=== PATIENT | female | born 1935 | race Caucasian/White ===

== ENCOUNTER → 2017-12-10 | Outpatient (CLI) | payer MEDICARE, OTHER | END | disposition home or self-care (01) | LOC: VAS 14:51 | DX: M79.605 Pain in left leg (principal); R60.9 Edema, unspecified | CPT/HCPCS: 93922; 93970 ==

== ENCOUNTER 2018-04-06 14:06 | Inpatient (IN) | payer MEDICARE, OTHER ==
[2018-04-06] MEDS ORDERED: ONDANSETRON 4 MG INJ IV (14:30)
[2018-04-06] MEDS ORDERED: NACL 0.9% 3 ML SYG IV ×2 (14:30→15:30)
[2018-04-06] MEDS ORDERED: ZOLPIDEM 5 MG TAB PO (14:30)
[2018-04-06] MEDS ORDERED: VANCOMYCIN IV PER PHARMACY XX (14:30)
[2018-04-06 15:08] LABS: ADD MAN DIFF? NO
[2018-04-06 15:11] LABS: BASOPHIL # 0.1 10^3/ul (0.0-0.1); BASOPHILS % 0.3 % (0.0-2.0); EOSINOPHILS # 0.1 10^3/ul (0.0-0.5); EOSINOPHILS % 0.3 % (0.0-7.0); HEMATOCRIT 39.1 % (37.0-47.0); LYMPHOCYTES # 1.4 10^3/ul (0.8-2.9); LYMPHOCYTES % 9.6 % (15.0-51.0); MEAN CORPUSCULAR HEMOGLOBIN 31.4 pg (29.0-33.0); MEAN CORPUSCULAR HGB CONC 33.2 g/dl (32.0-37.0); MEAN CORPUSCULAR VOLUME 94.4 fl (82.0-101.0); MEAN PLATELET VOLUME 10.3 fl (7.4-10.4); MONOCYTE # 0.8 10^3/ul (0.3-0.9); MONOCYTES % 5.5 % (0.0-11.0); NEUTROPHIL # 12.3 10^3/ul (1.6-7.5); NEUTROPHILS % 83.4 % (39.0-77.0); PLATELET COUNT 265 10^3/UL (140-415); RED BLOOD COUNT 4.14 10^6/ul (4.20-5.40); RED CELL DISTRIBUTION WIDTH 12.8 % (11.5-14.5)
[2018-04-06 15:11] LABS: WHITE BLOOD COUNT 14.8 10^3/ul (4.8-10.8)
[2018-04-06 15:29] LABS: ALANINE AMINOTRANSFERASE 24 IU/L (13-69); ALBUMIN 3.9 g/dl (3.3-4.9); ALBUMIN/GLOBULIN RATIO 1.25; ALKALINE PHOSPHATASE 57 IU/L (42-121); ANION GAP 9 (5-13); ASPARTATE AMINO TRANSFERASE 20 IU/L (15-46); BILIRUBIN,INDIRECT 1.7 mg/dl (0-1.1); BILIRUBIN,TOTAL 1.7 mg/dl (0.2-1.3); BLOOD UREA NITROGEN 18 mg/dl (7-20); CALCIUM 9.2 mg/dl (8.4-10.2); CARBON DIOXIDE 26 mmol/L (21-31); CHLORIDE 107 mmol/L (97-110); CREATININE 1.07 mg/dl (0.44-1.00); GLUCOSE 150 mg/dl (70-220); MAGNESIUM 1.9 mg/dl (1.7-2.5); PHOSPHORUS 3.8 mg/dl (2.5-4.9); POTASSIUM 4.2 mmol/L (3.5-5.1); SODIUM 142 mmol/L (135-144)
[2018-04-06] MEDS: PIPER-TAZO 3.375 GM IV (PMX) 100 ML IVPB ×2 (16:20→21:29)
[2018-04-06] MEDS: VANCOMYCIN 1.5 GM in SOD CHLORIDE 0.9% 250 ML IVPB (18:15)
[2018-04-06] MEDS: ALBUTEROL HFA 8 GM INHALER INH (18:32)
[2018-04-06] MEDS ORDERED: PIPER-TAZO 3.375 GM IV (PMX) 100 ML IVPB (22:00)
[2018-04-07 01:21] LABS: ADD UMIC NO; UR ASCORBIC ACID NEGATIVE (NEGATIVE); UR BILIRUBIN (Dip) NEGATIVE (NEGATIVE); UR BLOOD (Dip) NEGATIVE (NEGATIVE); UR CLARITY CLEAR (CLEAR); UR COLOR STRAW (YELLOW); UR GLUCOSE (Dip) NEGATIVE (NEGATIVE); UR KETONES (Dip) NEGATIVE (NEGATIVE); UR LEUKOCYTE ESTERASE (Dip) NEGATIVE Leu/ul (NEGATIVE); UR NITRITE (Dip) NEGATIVE (NEGATIVE); UR SPECIFIC GRAVITY (Dip) 1.014 (1.003-1.030); UR TOTAL PROTEIN (Dip) NEGATIVE (NEGATIVE); UR UROBILINOGEN (Dip) NEGATIVE (NEGATIVE)
[2018-04-07] MEDS: ALBUTEROL HFA 8 GM INHALER INH ×4 (01:41→21:58)
[2018-04-07] MEDS: PIPER-TAZO 3.375 GM IV (PMX) 100 ML IVPB ×3 (05:19→21:28)
[2018-04-07 07:19] LABS: HEMOGLOBIN A1C 5.7 % (0-5.9)
[2018-04-07] MEDS: ASPIRIN (EC) 81 MG TAB PO (08:35)
[2018-04-07] MEDS: COLLAGENASE 5 GM (UD JAR) TOP (15:30)
[2018-04-07] MEDS ORDERED: PENDING SANTYL ORDER FOR WOUND CARE XX (15:30)
[2018-04-07] MEDS ORDERED: COLLAGENASE 5 GM (UD JAR) TOP (16:00)
[2018-04-07] MEDS: VANCOMYCIN 1 GM 250 ML IVPB (16:54)
[2018-04-08] MEDS: ALBUTEROL HFA 8 GM INHALER INH (02:33)
[2018-04-08] MEDS: PIPER-TAZO 3.375 GM IV (PMX) 100 ML IVPB ×3 (05:34→22:22)
[2018-04-08 07:16] LABS: ADD MAN DIFF? NO
[2018-04-08 07:28] LABS: BASOPHIL # 0.1 10^3/ul (0.0-0.1); BASOPHILS % 0.6 % (0.0-2.0); EOSINOPHILS # 0.1 10^3/ul (0.0-0.5); HEMATOCRIT 36.8 % (37.0-47.0); HEMOGLOBIN 12.1 g/dl (12.0-16.0); LYMPHOCYTES # 1.6 10^3/ul (0.8-2.9); LYMPHOCYTES % 16.9 % (15.0-51.0); MEAN CORPUSCULAR HEMOGLOBIN 31.3 pg (29.0-33.0); MEAN CORPUSCULAR HGB CONC 32.9 g/dl (32.0-37.0); MEAN CORPUSCULAR VOLUME 95.1 fl (82.0-101.0); MEAN PLATELET VOLUME 10.4 fl (7.4-10.4); MONOCYTE # 0.6 10^3/ul (0.3-0.9); MONOCYTES % 6.5 % (0.0-11.0); NEUTROPHIL # 7.2 10^3/ul (1.6-7.5); PLATELET COUNT 235 10^3/UL (140-415); RED BLOOD COUNT 3.87 10^6/ul (4.20-5.40); RED CELL DISTRIBUTION WIDTH 13.2 % (11.5-14.5)
[2018-04-08 07:28] LABS: WHITE BLOOD COUNT 9.7 10^3/ul (4.8-10.8)
[2018-04-08 07:49] LABS: ANION GAP 9 (5-13); BLOOD UREA NITROGEN 20 mg/dl (7-20); CARBON DIOXIDE 27 mmol/L (21-31); CHLORIDE 107 mmol/L (97-110); CREATININE 1.21 mg/dl (0.44-1.00); GLUCOSE 105 mg/dl (70-220); POTASSIUM 4.5 mmol/L (3.5-5.1); SODIUM 143 mmol/L (135-144)
[2018-04-08 09:02] LABS: ERYTHROCYTE SEDIMENTATION RATE 33 mm/Hr (0-30)
[2018-04-08] MEDS: ASPIRIN (EC) 81 MG TAB PO (09:21)
[2018-04-08] MEDS: ACETAMINOPHEN 325 MG TAB PO (09:27)
[2018-04-08] MEDS: COLLAGENASE 5 GM (UD JAR) TOP (09:27)
[2018-04-08] MEDS: ALBUTEROL/IPRATROPIUM (NEB) 3 ML AMP HHN (21:46)
[2018-04-09] MEDS: PIPER-TAZO 3.375 GM IV (PMX) 100 ML IVPB ×2 (05:45→13:27)
[2018-04-09] MEDS: ALBUTEROL HFA 8 GM INHALER INH ×2 (05:47→22:11)
[2018-04-09] MEDS: ALBUTEROL/IPRATROPIUM (NEB) 3 ML AMP HHN ×3 (07:50→20:00)
[2018-04-09] MEDS: ASPIRIN (EC) 81 MG TAB PO (08:25)
[2018-04-09] MEDS: COLLAGENASE 5 GM (UD JAR) TOP (08:25)
[2018-04-09] MEDS: ACETAMINOPHEN 325 MG TAB PO (13:27)
[2018-04-10] MEDS: ALBUTEROL/IPRATROPIUM (NEB) 3 ML AMP HHN ×4 (01:32→20:50)
[2018-04-10] MEDS: LEVOFLOXACIN 500 MG TAB PO (06:33)
[2018-04-10 06:58] LABS: ADD MAN DIFF? NO
[2018-04-10 07:05] LABS: BASOPHIL # 0.1 10^3/ul (0.0-0.1); BASOPHILS % 0.7 % (0.0-2.0); EOSINOPHILS # 0.1 10^3/ul (0.0-0.5); EOSINOPHILS % 0.9 % (0.0-7.0); HEMATOCRIT 38.3 % (37.0-47.0); HEMOGLOBIN 12.6 g/dl (12.0-16.0); LYMPHOCYTES # 1.6 10^3/ul (0.8-2.9); LYMPHOCYTES % 15.5 % (15.0-51.0); MEAN CORPUSCULAR HEMOGLOBIN 31.3 pg (29.0-33.0); MEAN CORPUSCULAR HGB CONC 32.9 g/dl (32.0-37.0); MEAN CORPUSCULAR VOLUME 95.3 fl (82.0-101.0); MEAN PLATELET VOLUME 10.3 fl (7.4-10.4); MONOCYTE # 0.7 10^3/ul (0.3-0.9); MONOCYTES % 6.2 % (0.0-11.0); NEUTROPHIL # 7.9 10^3/ul (1.6-7.5); NEUTROPHILS % 75.3 % (39.0-77.0); PLATELET COUNT 253 10^3/UL (140-415); RED BLOOD COUNT 4.02 10^6/ul (4.20-5.40); RED CELL DISTRIBUTION WIDTH 13.2 % (11.5-14.5)
[2018-04-10 07:05] LABS: WHITE BLOOD COUNT 10.5 10^3/ul (4.8-10.8)
[2018-04-10 07:58] LABS: ANION GAP 10 (5-13); BLOOD UREA NITROGEN 24 mg/dl (7-20); CARBON DIOXIDE 24 mmol/L (21-31); CHLORIDE 108 mmol/L (97-110); CREATININE 1.15 mg/dl (0.44-1.00); GLUCOSE 115 mg/dl (70-220); MAGNESIUM 2.1 mg/dl (1.7-2.5); PHOSPHORUS 3.9 mg/dl (2.5-4.9); POTASSIUM 4.9 mmol/L (3.5-5.1); SODIUM 142 mmol/L (135-144)
[2018-04-10] MEDS: ASPIRIN (EC) 81 MG TAB PO (08:40)
[2018-04-10] MEDS: INFLUENZA VIRUS VACCINE 0.5 ML (DISPENSING) IM* (08:40)
[2018-04-10] MEDS: COLLAGENASE 5 GM (UD JAR) TOP (08:40)
[2018-04-10] MEDS: ACETAMINOPHEN 325 MG TAB PO (11:51)
[2018-04-10] MEDS: ALBUTEROL HFA 8 GM INHALER INH (17:55)
[2018-04-11] MEDS: LEVOFLOXACIN 250 MG TAB PO (05:49)
[2018-04-11] MEDS: ASPIRIN (EC) 81 MG TAB PO (07:54)
[2018-04-11] MEDS: COLLAGENASE 5 GM (UD JAR) TOP (07:54)
[2018-04-11] MEDS: INFLUENZA VIRUS VACCINE 0.5 ML (DISPENSING) IM* (08:15)
[2018-04-11] MEDS: ALBUTEROL/IPRATROPIUM (NEB) 3 ML AMP HHN (08:46)
== END 2018-04-11 13:55 | disposition home or self-care (01) | DRG 603 ==
LOC: 2NE 14:06
DX: L03.116 Cellulitis of left lower limb (principal); L12.0 Bullous pemphigoid; I73.9 Peripheral vascular disease, unspecified; I10 Essential (primary) hypertension; J45.909 Unspecified asthma, uncomplicated; G62.9 Polyneuropathy, unspecified; I70.8 Atherosclerosis of other arteries; Z79.82 Long term (current) use of aspirin; Z90.49 Acquired absence of other specified parts of digestive tract
CPT/HCPCS: 71046; 80048; 80053; 81003; 83036; 83735; 84100; 85025; 85651; 87070; 90686; 93005; 93306; 93922; 93970; 94640; 94664; 99217; G0378